=== PATIENT | female | born 1990 | race Caucasian/White ===

== ENCOUNTER 2016-08-27 11:18 | Emergency (ER) | payer OTHER ==
[~2016-08-27] VITALS: Ht 165.1 cm; Wt 99.3 kg
[2016-08-27] MEDS ORDERED: PNV11TAB PO (12:14)
[2016-08-27] MEDS ORDERED: SODIUM CHLORIDE 0.9% 1,000ML IVBOLUS ONE (12:30)
[2016-08-27] MEDS ORDERED: ONDANSETRON 2MG/ML, 2ML IVPush ONE (12:30)
[2016-08-27] MEDS ORDERED: SODIUM CHLORIDE FLUSH 10ML SYR IVF ONE (12:30)
[2016-08-27] MEDS ORDERED: ONDANSETRON 2MG/ML, 2ML ONE (12:45)
[2016-08-27 12:49] LABS: ASPARTATE AMINO TRANSFERASE 13 U/L (15-37); BLOOD UREA NITROGEN 5 mg/dL (7-18)
[2016-08-27 13:59] VITALS: BP 112/76
== END 2016-08-27 14:11 | disposition home or self-care (01) ==
LOC: ED 11:54
DX: O23.42 Unspecified infection of urinary tract in pregnancy, second trimester (principal); N39.0 Urinary tract infection, site not specified; Z3A.19 19 weeks gestation of pregnancy; Z88.0 Allergy status to penicillin
CPT/HCPCS: 36415; 76805; 80053; 81001; 84702; 85025; 87077; 87086; 93005; 96361; 96374; 99285; J2405; J7030; 87186

== ENCOUNTER 2016-09-19 10:58 | Inpatient (IN) | payer OTHER ==
[~2016-09-19] VITALS: Ht 165.1 cm; Wt 100.0 kg
[~2016-09-19 10:58] MED LIST: PNV11TAB PO
[2016-09-19 11:14] VITALS: BP 116/78
[2016-09-19] MEDS ORDERED: ACETAMINOPHEN 325 MG TABLET PO PRN (11:30)
[2016-09-19] MEDS ORDERED: ACETAMINOPHEN 325 MG TABLET ONE (11:35)
[2016-09-19] MEDS ORDERED: OXYcodone/APAP 5/325MG TABLET PO PRN (12:00)
[2016-09-19] MEDS ORDERED: GENTAMICIN PER PHARMACY MC PRN (12:00)
[2016-09-19] MEDS ORDERED: CEFAZOLIN 2,000 MG in SODIUM CHLORIDE 0.9% 50 ML IV SCH (12:00)
[2016-09-19] MEDS ORDERED: OXYcodone/APAP 5/325MG TABLET ONE (12:07)
[2016-09-19 12:37] LABS: ASPARTATE AMINO TRANSFERASE 14 U/L (15-37); BLOOD UREA NITROGEN 4 mg/dL (7-18)
[2016-09-19] MEDS: LACTATED RINGERS 1,000 ML IV SCH ×2 (12:58→21:19)
[2016-09-19] MEDS ORDERED: PHARMACOKINETIC CONSULTATION MC ONE (13:00)
[2016-09-19] MEDS ORDERED: PHARMACOKINETIC MONITORING MC PRN (13:00)
[2016-09-19] MEDS: CEFAZOLIN PMX 2GM/50ML 50 ML IVPB SCH (13:04)
[2016-09-19] MEDS: GENTAMICIN 150 MG in SODIUM CHLORIDE 0.9% 50 ML IV SCH ×2 (14:04→22:08)
[2016-09-19] MEDS: OXYcodone/APAP 10/325MG TABLET PO PRN ×2 (16:15→21:26)
[2016-09-19] MEDS ORDERED: OXYcodone/APAP 10/325MG TABLET ONE ×2 (16:15→21:19)
[2016-09-19 20:00] VITALS: BP 107/61
[2016-09-19] MEDS ORDERED: ZOLPIDEM 5MG TABLET ONE (21:19)
[2016-09-19] MEDS: ZOLPIDEM 5MG TABLET PO SCH (22:08)
[2016-09-20] MEDS: CEFAZOLIN PMX 2GM/50ML 50 ML IVPB SCH ×2 (01:10→13:07)
[2016-09-20] MEDS ORDERED: SODIUM CHLORIDE 0.9% 1,000 ML IV SCH (02:00)
[2016-09-20] MEDS ORDERED: OXYcodone/APAP 10/325MG TABLET ONE ×4 (04:09→19:35)
[2016-09-20] MEDS: OXYcodone/APAP 10/325MG TABLET PO PRN ×4 (04:12→19:38)
[2016-09-20 04:50] LABS: BLOOD UREA NITROGEN 3 mg/dL (7-18)
[2016-09-20 04:55] LABS: ASPARTATE AMINO TRANSFERASE 9 U/L (15-37)
[2016-09-20] MEDS: LACTATED RINGERS 1,000 ML IV SCH ×2 (05:54→14:41)
[2016-09-20] MEDS: GENTAMICIN 150 MG in SODIUM CHLORIDE 0.9% 50 ML IV SCH ×4 (05:54→21:59)
[2016-09-20 07:40] VITALS: BP 95/52
[2016-09-20] MEDS ORDERED: PRENATAL VIT/IRON/FA 1 EACH TABLET PO SCH (09:00)
[2016-09-20] MEDS ORDERED: ONDANSETRON 2MG/ML, 2ML ONE (12:25)
[2016-09-20] MEDS: ONDANSETRON 2MG/ML, 2ML IVPush PRN (12:27)
[2016-09-20] MEDS ORDERED: ZOLPIDEM 5MG TABLET ONE (23:05)
[2016-09-20] MEDS: ZOLPIDEM 5MG TABLET PO SCH (23:07)
[2016-09-21] MEDS ORDERED: OXYcodone/APAP 10/325MG TABLET ONE ×5 (01:09→22:01)
[2016-09-21] MEDS: CEFAZOLIN PMX 2GM/50ML 50 ML IVPB SCH ×2 (01:10→12:47)
[2016-09-21] MEDS: OXYcodone/APAP 10/325MG TABLET PO PRN ×5 (01:10→22:02)
[2016-09-21] MEDS: GENTAMICIN 150 MG in SODIUM CHLORIDE 0.9% 50 ML IV SCH ×3 (06:17→22:03)
[2016-09-21 07:27] VITALS: BP 90/50
[2016-09-21] MEDS ORDERED: PRENATAL VIT/IRON/FA 1 EACH TABLET ONE (08:41)
[2016-09-21] MEDS ORDERED: ONDANSETRON 2MG/ML, 2ML ONE (09:01)
[2016-09-21] MEDS: LACTATED RINGERS 1,000 ML IV SCH ×2 (09:04→18:22)
[2016-09-21] MEDS: ONDANSETRON 2MG/ML, 2ML IVPush PRN (09:04)
[2016-09-21 20:15] VITALS: BP 94/53
[2016-09-21] MEDS ORDERED: ZOLPIDEM 5MG TABLET ONE (22:49)
[2016-09-21] MEDS: ZOLPIDEM 5MG TABLET PO SCH (22:50)
[2016-09-22] MEDS: CEFAZOLIN PMX 2GM/50ML 50 ML IVPB SCH (01:07)
[2016-09-22] MEDS ORDERED: OXYcodone/APAP 10/325MG TABLET ONE ×2 (02:54→07:55)
[2016-09-22] MEDS: OXYcodone/APAP 10/325MG TABLET PO PRN ×2 (02:55→07:55)
[2016-09-22] MEDS: GENTAMICIN 150 MG in SODIUM CHLORIDE 0.9% 50 ML IV SCH (06:09)
[2016-09-22] MEDS ORDERED: DOCUSATE 100 MG CAPSULE ONE (08:08)
[2016-09-22 08:21] VITALS: BP 99/61
[2016-09-22] MEDS ORDERED: DOCUSATE 100 MG CAPSULE PO SCH (09:00)
== END 2016-09-22 09:10 | disposition home or self-care (01) | DRG 781 ==
LOC: LDOP 10:58 → LDIP 12:01
PROVIDERS: ADMIT Obstetrics & Gynecology; ATTEND Obstetrics & Gynecology
PROC: 0T9B70Z Drainage of Bladder with Drainage Device, Via Natural or Artificial Opening (ICD-10-PCS; principal; 2016-09-19)
DX: O23.02 Infections of kidney in pregnancy, second trimester (principal); Z3A.22 22 weeks gestation of pregnancy
CPT/HCPCS: 36415; 76770; 80053; 80170; 81001; 85025; 87077; 87086; 87186; J0690; J2405; J1580; J7030; J7120

== ENCOUNTER 2017-01-24 02:55 | Inpatient (IN) | payer OTHER ==
[~2017-01-24] VITALS: Ht 165.1 cm; Wt 108.2 kg
[2017-01-24 03:14] VITALS: BP 116/70
[2017-01-24] MEDS ORDERED: OXYTOCIN 30U/ 0.9% NaCL 500ML 500 ML IV ONE (04:44)
[2017-01-24] MEDS ORDERED: NEWBORN KIT ONE (04:54)
[2017-01-24] MEDS ORDERED: FENTANYL PF 100 MCG/2ML ONE (04:55)
[2017-01-24] MEDS ORDERED: OXYTOCIN 30U/ 0.9% NaCL 500ML 500 ML ONE (04:55)
[2017-01-24] MEDS: LACTATED RINGERS 1,000 ML IV SCH ×7 (04:58→22:08)
[2017-01-24] MEDS ORDERED: TERBUTALINE 1 MG/ML, 1ML IVPush PRN ×2 (05:00)
[2017-01-24] MEDS ORDERED: FENTANYL PF 100 MCG/2ML IVPush PRN (05:00)
[2017-01-24] MEDS ORDERED: ONDANSETRON 2MG/ML, 2ML IVPush PRN ×2 (05:00→15:30)
[2017-01-24] MEDS ORDERED: FENTANYL PF 100 MCG/2ML IV PRN ×2 (05:00→15:30)
[2017-01-24 05:32] LABS: HEMATOCRIT 35.9 % (34.6-47.8); WHITE BLOOD COUNT 13.2 x10^3/uL (3.4-10)
[2017-01-24] MEDS: D5%-LACTATED RINGERS 1,000 ML IV SCH ×3 (05:39→20:44)
[2017-01-24] MEDS ORDERED: BUPIVACAINE/PF 0.25% ONE (08:42)
[2017-01-24] MEDS ORDERED: LIDOCAINE/MPF 2%-EPI 1:200K, 20 ML ONE ×4 (08:43→13:30)
[2017-01-24] MEDS ORDERED: FENTANYL/BUPIV./NS/PF 250 ML EPIDCONT ONE (08:43)
[2017-01-24] MEDS ORDERED: LIDOCAINE/PF 1.5%-EPI 1:200K, 30ML ONE (09:25)
[2017-01-24] MEDS ORDERED: FENTANYL/BUPIV./NS/PF 250 ML EPIDCONT SCH (09:55)
[2017-01-24] MEDS ORDERED: LACTATED RINGERS 1,000 ML IVBOLUS PRN (10:00)
[2017-01-24] MEDS ORDERED: SODIUM CITRATE/CITRIC ACID 30 ML UDC ONE (11:55)
[2017-01-24] MEDS ORDERED: METOCLOPRAMIDE 5 MG/ML, 2ML ONE (11:56)
[2017-01-24] MEDS ORDERED: TERBUTALINE 1 MG/ML, 1ML ONE (11:56)
[2017-01-24] MEDS ORDERED: MISOPROSTOL 200 MCG TABLET ONE (11:56)
[2017-01-24] MEDS ORDERED: LIDOCAINE 1%, 20ML ONE (11:56)
[2017-01-24] MEDS ORDERED: OXYTOCIN 10 UNITS/ML, 1ML ONE (13:31)
[2017-01-24] MEDS ORDERED: CEFAZOLIN 1,000 MG ONE (13:31)
[2017-01-24] MEDS ORDERED: SODIUM BICARBONATE 1 MEQ/ML, 50ML VIAL ONE (13:33)
[2017-01-24] MEDS ORDERED: CLINDAMYCIN PMX 900MG/50ML 0 ML ONE (14:00)
[2017-01-24] MEDS ORDERED: EPHEDRINE 50 MG/ML, 1ML ONE (14:24)
[2017-01-24] MEDS ORDERED: KETOROLAC 30 MG/1 ML ONE (14:56)
[2017-01-24] MEDS: morphine SULFATE 10 MG/ML, 1ML IV PRN ×7 (15:05→17:25)
[2017-01-24] MEDS ORDERED: LACTATED RINGERS 1,000 ML IV SCH (15:18)
[2017-01-24] MEDS ORDERED: ONDANSETRON 2MG/ML, 2ML IV PRN (15:30)
[2017-01-24] MEDS ORDERED: MISOPROSTOL 200 MCG TABLET PR PRN (15:30)
[2017-01-24] MEDS ORDERED: PROMETHAZINE 25 MG/ML, 1ML IV PRN (15:30)
[2017-01-24] MEDS: KETOROLAC 30 MG/1 ML IV SCH ×2 (15:30→21:17)
[2017-01-24] MEDS ORDERED: OXYcodone/APAP 5/325MG TABLET PO PRN (15:30)
[2017-01-24] MEDS ORDERED: CALCIUM CARBONATE 500 MG TAB.CHEW PO PRN (15:30)
[2017-01-24] MEDS ORDERED: RHOGAM FROM BLOOD BANK 1 NOTE EA IM/IV ONE (15:30)
[2017-01-24] MEDS ORDERED: morphine SULFATE 10 MG/ML, 1ML IVPush PRN (15:30)
[2017-01-24] MEDS ORDERED: DIPH,PERTUSS(ACELL),TET VAC/PF NC IM-VACC PRN (15:30)
[2017-01-24] MEDS ORDERED: MEASLES,MUMPS&RUBELLA VACC/PF 0.5 ML SQ-VACC PRN (15:30)
[2017-01-24] MEDS ORDERED: OXYcodone 5 MG/5 ML ORAL.SOL UDC PO PRN (15:30)
[2017-01-24] MEDS ORDERED: SIMETHICONE 80 MG CHEW TAB PO PRN (15:30)
[2017-01-24] MEDS ORDERED: MEPERIDINE/PF 25MG/0.5ML IVPush PRN (15:30)
[2017-01-24] MEDS ORDERED: LABETALOL 5MG/ML, 20ML IV PRN (15:30)
[2017-01-24] MEDS ORDERED: EPHEDRINE 50 MG/ML, 1ML IVPush PRN (15:30)
[2017-01-24] MEDS ORDERED: MORPHINE SULFATE 4 MG/ML, 1ML ONE (15:52)
[2017-01-24] MEDS ORDERED: morphine SULFATE 10 MG/ML, 1ML ONE ×2 (15:58→17:08)
[2017-01-24] MEDS: OXYTOCIN 30U/ 0.9% NaCL 500ML 500 ML IV SCH (16:14)
[2017-01-24] MEDS ORDERED: OXYcodone/APAP 5/325MG TABLET ONE (16:56)
[2017-01-24 17:30] VITALS: BP 102/68
[2017-01-24 20:20] VITALS: BP 113/60
[2017-01-24] MEDS: DOCUSATE 100 MG CAPSULE PO PRN (21:17)
[2017-01-24] MEDS: OXYcodone IR 5MG TABLET PO PRN (21:17)
[2017-01-24 23:20] VITALS: BP 100/66
[2017-01-25] MEDS: OXYcodone IR 5MG TABLET PO PRN ×7 (01:16→22:58)
[2017-01-25] MEDS: OXYTOCIN 30U/ 0.9% NaCL 500ML 500 ML IV SCH ×3 (01:18→21:18)
[2017-01-25] MEDS: LACTATED RINGERS 1,000 ML IV SCH ×4 (01:18→23:15)
[2017-01-25] MEDS: KETOROLAC 30 MG/1 ML IV SCH ×3 (03:45→15:38)
[2017-01-25 03:53] VITALS: BP 111/70
[2017-01-25] MEDS ORDERED: OXYcodone IR 5MG TABLET ONE (04:14)
[2017-01-25 07:30] VITALS: BP 97/68
[2017-01-25] MEDS: PRENATAL VIT/IRON/FA 1 EACH TABLET PO SCH (08:44)
[2017-01-25] MEDS: DOCUSATE 100 MG CAPSULE PO PRN ×2 (08:44→19:41)
[2017-01-25 13:00] VITALS: BP 93/66
[2017-01-25] MEDS: IBUPROFEN 600 MG TABLET PO PRN ×2 (16:02→22:04)
[2017-01-25 20:00] VITALS: BP 106/64
[2017-01-26] MEDS: OXYcodone IR 5MG TABLET PO PRN ×9 (01:55→23:43)
[2017-01-26] MEDS: OXYTOCIN 30U/ 0.9% NaCL 500ML 500 ML IV SCH ×2 (03:07→17:18)
[2017-01-26] MEDS: IBUPROFEN 600 MG TABLET PO PRN ×4 (04:00→23:42)
[2017-01-26] MEDS: PRENATAL VIT/IRON/FA 1 EACH TABLET PO SCH (08:15)
[2017-01-26] MEDS: DOCUSATE 100 MG CAPSULE PO PRN ×2 (08:15→20:31)
[2017-01-26 08:17] VITALS: BP 105/79
[2017-01-26] MEDS ORDERED: IBUPROFEN 600 MG TABLET PO PRN (15:30)
[2017-01-26] MEDS: LACTATED RINGERS 1,000 ML IV SCH (17:18)
[2017-01-26 20:30] VITALS: BP 130/80
[2017-01-27] MEDS: OXYcodone IR 5MG TABLET PO PRN ×4 (02:43→12:06)
[2017-01-27] MEDS: OXYTOCIN 30U/ 0.9% NaCL 500ML 500 ML IV SCH ×2 (03:18→13:18)
[2017-01-27] MEDS: LACTATED RINGERS 1,000 ML IV SCH ×2 (03:18→13:18)
[2017-01-27] MEDS: IBUPROFEN 600 MG TABLET PO PRN ×2 (06:00→12:06)
[2017-01-27 09:00] VITALS: BP 104/73
[2017-01-27] MEDS: DOCUSATE 100 MG CAPSULE PO PRN (09:02)
[2017-01-27] MEDS: PRENATAL VIT/IRON/FA 1 EACH TABLET PO SCH (09:02)
[2017-01-27] MEDS ORDERED: IBUP-1222 PO (13:50)
[2017-01-27] MEDS ORDERED: DOCU-131 PO (13:50)
[2017-01-27] MEDS ORDERED: OXYC5TAB3 PO (13:51)
== END 2017-01-27 14:50 | disposition home or self-care (01) | DRG 766 ==
LOC: LDOP 02:55 → LDIP 05:06 → 2NW 17:20
PROVIDERS: ADMIT Obstetrics & Gynecology; ATTEND Obstetrics & Gynecology
PROC: 10D00Z1 Extraction of Products of Conception, Low, Open Approach (ICD-10-PCS; principal; 2017-01-24)
DX: O48.0 Post-term pregnancy (principal); O42.90 Premature rupture of membranes, unspecified as to length of time between rupture and onset of labor, unspecified weeks of gestation; O76 Abnormality in fetal heart rate and rhythm complicating labor and delivery; O77.0 Labor and delivery complicated by meconium in amniotic fluid; Z3A.40 40 weeks gestation of pregnancy; Z37.0 Single live birth
CPT/HCPCS: 36415; 82803; 85025; 86850; 86900; J0690; J1885; J3010; J3490; J2270; J2590; J7120; J7121

== ENCOUNTER 2018-10-19 12:47 | Inpatient (IN) | payer OTHER ==
[~2018-10-19] VITALS: Ht 165.1 cm; Wt 109.0 kg
[2018-10-22 07:05] VITALS: BP 121/83
== END 2018-10-22 15:45 | disposition home or self-care (01) | DRG 788 ==
LOC: LDOP 12:47 → LDIP 14:13 → 2NW 20:01
PROVIDERS: ADMIT Obstetrics & Gynecology; ATTEND Obstetrics & Gynecology
PROC: 10D00Z1 Extraction of Products of Conception, Low, Open Approach (ICD-10-PCS; principal; 2018-10-19)
DX: O34.211 Maternal care for low transverse scar from previous cesarean delivery (principal); O99.824 Streptococcus B carrier state complicating childbirth; Z37.0 Single live birth; Z3A.36 36 weeks gestation of pregnancy; Z88.2 Allergy status to sulfonamides; Z88.0 Allergy status to penicillin; Z88.6 Allergy status to analgesic agent
CPT/HCPCS: 36415; 85025; 86850; 86900; 89060; G0378; J0171; J0690; J1170; J1885; J2175; J2274; J3490; J1200; J2370; J2590; J2765; J7120; Q0114